=== PATIENT | female | born 1930 | race Caucasian/White ===

== ENCOUNTER 2018-02-28 03:38 | Emergency (ER) | payer MEDICARE ==
--- NOTE | 2018-02-28 03:52 | EDM.PDOC ---
ED HPI GENERAL MEDICAL PROBLEM - General Chief Complaint: Head Injury Stated Complaint: AMBULANCE Time Seen by Provider: 02/28/18 03:47 Source of Information: Reports: Patient History Limitations: Reports: No Limitations - History of Present Illness INITIAL COMMENTS - FREE TEXT/NARRATIVE: HISTORY AND PHYSICAL: History of present illness: 80-year-old female presenting emergency to department by EMS after a fall with head trauma at 3 am this morning. As per patient, at approximately 3 AM this morning she was turning around by her bed and lost her balance falling backwards and striking the back of her head. She states that she did not lose consciousness. She denies any chest pain or shortness of breath prior to or after the event. She does admit to having some problems with her balance. At this time she is having no pain at all. She denies and taking any blood thinners. Patient does have an inhaler for asthma. Otherwise patient is doing well. She denies any recent illness. She denies any chest pain, palpitations, shortness of breath, single episodes, focal neurologic deficits, abdominal pain, dysuria, or leg pain. On exam patient is alert and oriented 3 There is a large hematoma on the occiput with a smaller hematoma and abrasion approximately an inch and a half below larger hematoma on back of head. Review of systems: As per history of present illness and below otherwise all systems reviewed and negative. Past medical history: As per history of present illness and as reviewed below otherwise noncontributory. Surgical history: As per history of present illness and as reviewed below otherwise noncontributory. Social history: No reported history of drug or alcohol abuse. Family history: As per history of present illness and as reviewed below otherwise noncontributory. Physical exam: HEENT: See above H&P, normocephalic, pupils reactive, negative for conjunctival pallor or scleral icterus, mucous membranes moist, throat clear, neck supple, nontender, trachea midline. Lungs: Clear to auscultation, breath sounds equal bilaterally, chest nontender. Heart: S1S2, regular, negative for clicks, rubs, or JVD. Abdomen: Soft, nondistended, nontender. Negative for masses or hepatosplenomegaly. Negative for costovertebral tenderness. Pelvis: Stable nontender. Genitourinary: Deferred. Rectal: Deferred. Extremities: Atraumatic, negative for cords or calf pain. Neurovascular unremarkable. Neuro: Awake, alert, oriented. Cranial nerves II through XII unremarkable. Cerebellum unremarkable. Motor and sensory unremarkable throughout. Exam nonfocal. Diagnostics: CBC, CMP, UA/UC, CT head and neck Therapeutics: Bacitracin Bactrim DS by mouth twice a day 5 days Impression: Fall Contusion occiput head Laceration occiput head Plan: CBC, CMP, CT head and neck were unremarkable. Bacitracin was placed on abrasion in patient was instructed to use ice as well as ibuprofen and Tylenol for pain and inflammation. Urinalysis was positive for acute cystitis. Patient was given a prescription for Bactrim DS by mouth twice a day 5 days. She should follow- up with her primary care provider and return to emergency department if any new or worsening symptoms. Definitive disposition and diagnosis as appropriate pending reevaluation and review of above. no pain Pain Score (Numeric/FACES): 0 - Related Data Allergies Allergy/AdvReac Type Severity Reaction Status Date / Time No Known Allergies Allergy Verified 02/28/18 03:44 Home Meds: Home Meds Acetaminophen [Tylenol] 650 mg PO ASDIRECTED 02/28/18 [History] Albuterol [Ventolin HFA] 0 puff .XX 02/28/18 [History] Bisacodyl 10 mg RC ASDIRECTED 02/28/18 [History] Cholecalciferol (Vitamin D3) [Vitamin D3] 1,000 units PO DAILY 02/28/18 [History ] Docusate Sodium [Colace] 100 mg PO Q8HR 02/28/18 [History] Magnesium Hydroxide [Milk of Magnesia] 400 mg PO ASDIRECTED 02/28/18 [History] Polyethylene Glycol 3350 [MiraLAX] 17 g PO ASDIRECTED 02/28/18 [History] ED ROS GENERAL - Review of Systems Review Of Systems: ROS reveals no pertinent complaints other than HPI. ED EXAM, HEAD INJURY - Physical Exam Exam: See Below Course - Vital Signs Last Recorded V/S: Last Vital Signs Temp 97.6 F 02/28/18 03:44 Pulse 82 02/28/18 05:07 Resp 20 02/28/18 05:07 BP 163/75 H 02/28/18 05:07 Pulse Ox 96 02/28/18 05:07 - Orders/Labs/Meds Orders: Active Orders 24 hr Category Date Time Status EKG Documentation Completion [RC] STAT Care 02/28/18 05:09 Active Cervical Spine wo Cont [CT] Stat Exams 02/28/18 03:52 Taken Head wo Cont [CT] Stat Exams 02/28/18 03:52 Taken CULTURE URINE [RM] Stat Lab 02/28/18 05:25 Received Labs: Laboratory Tests 02/28/18 02/28/18 02/28/18 Range/Units 04:06 04:06 05:25 WBC 4.73 (4.0-11.0) K/uL RBC 4.32 (4.30-5.90) M/uL Hgb 13.8 (12.0-16.0) g/dL Hct 40.4 (36.0-46.0) % MCV 93.5 (80.0-98.0) fL MCH 31.9 (27.0-32.0) pg MCHC 34.2 (31.0-37.0) g/dL RDW Std Deviation 45.7 (28.0-62.0) fl RDW Coeff of Inés 13 (11.0-15.0) % Plt Count 215 (150-400) K/uL MPV 9.20 (7.40-12.00) fL Neut % (Auto) 49.3 (48.0-80.0) % Lymph % (Auto) 33.8 (16.0-40.0) % Davison % (Auto) 11.8 (0.0-15.0) % Eos % (Auto) 3.6 (0.0-7.0) % Baso % (Auto) 1.5 (0.0-1.5) % Neut # (Auto) 2.3 (1.4-5.7) K/uL Lymph # (Auto) 1.6 (0.6-2.4) K/uL Davison # (Auto) 0.6 (0.0-0.8) K/uL Eos # (Auto) 0.2 (0.0-0.7) K/uL Baso # (Auto) 0.1 (0.0-0.1) K/uL Nucleated RBC % 0.0 /100WBC Nucleated RBCs # 0 K/uL Sodium 133 L (136-145) mmol/L Potassium 4.4 (3.5-5.1) mmol/L Chloride 100 (98-107) mmol/L Carbon Dioxide 28.8 (21.0-32.0) mmol/L BUN 12 (7.0-18.0) mg/dL Creatinine 0.7 (0.6-1.0) mg/dL Est Cr Clr Drug Dosing 39.90 mL/min Estimated GFR (MDRD) > 60.0 ml/min Glucose 104 (74-106) mg/dL Calcium 9.1 (8.5-10.1) mg/dL Total Bilirubin 0.4 (0.2-1.0) mg/dL AST 13 L (15-37) IU/L ALT 13 L (14-63) IU/L Alkaline Phosphatase 132 H (46-116) U/L Total Protein 6.9 (6.4-8.2) g/dL Albumin 3.6 (3.4-5.0) g/dL Globulin 3.3 (2.0-3.5) g/dL Albumin/Globulin Ratio 1.1 L (1.3-2.8) Urine Color YELLOW Urine Appearance CLEAR Urine pH 7.0 (5.0-8.0) Ur Specific [place] 1.010 (1.001-1.035) Urine Protein NEGATIVE (NEGATIVE) mg/dL Urine Glucose (UA) NEGATIVE (NEGATIVE) mg/dL Urine Ketones NEGATIVE (NEGATIVE) mg/dL Urine Occult Blood NEGATIVE (NEGATIVE) Urine Nitrite NEGATIVE (NEGATIVE) Urine Bilirubin NEGATIVE (NEGATIVE) Urine Urobilinogen 0.2 (<2.0) EU/dL Ur Leukocyte Esterase LARGE (NEGATIVE) Urine RBC 0-2 (0-2/HPF) Urine WBC 4-12 (0-5/HPF) Ur Epithelial Cells OCCASIONAL (NONE-FEW) Urine Bacteria 1+ H (NEGATIVE) Departure - Departure Time of Disposition: 05:45 Disposition: DC/Tfer to [facility] Condition: Good Clinical Impression: Fall Qualifiers: Encounter type: initial encounter Qualified Code(s): W19.XXXA - Unspecified fall, initial encounter Contusion Qualifiers: Encounter type: initial encounter Contusion area: head Contusion of head detail : scalp Qualified Code(s): S00.03XA - Contusion of scalp, initial encounter - Discharge Information Forms: ED Department Discharge - My Orders Last 24 Hours: My Active Orders 02/28/18 03:52 Cervical Spine wo Cont [CT] Stat Head wo Cont [CT] Stat 02/28/18 05:09 EKG Documentation Completion [RC] STAT 02/28/18 05:25 CULTURE URINE [RM] Stat - Assessment/Plan Last 24 Hours: My Active Orders 02/28/18 03:52 Cervical Spine wo Cont [CT] Stat Head wo Cont [CT] Stat 02/28/18 05:09 EKG Documentation Completion [RC] STAT 02/28/18 05:25 CULTURE URINE [RM] Stat
[2018-02-28 04:33] LABS: CHLORIDE,CL 100 mmol/L (98-107); SODIUM,NA 133 mmol/L (136-145)
--- NOTE | 2018-03-02 11:54 | CT ---
EXAM DATE: 02/28/18 PATIENT'S AGE: 88 Patient: ANNIKA DICKINSON Facility: [place], [place] Site . Site : 1930 Study: CT Spine Cervical [id number]/29/2018 5:07:02 AM Ordering Physician: Kane Sargent Final Report: INDICATION: Fell, neck pain TECHNIQUE: CT cervical spine without i.v. contrast. Coronal and sagittal reformats were obtained. CONTRAST: None COMPARISON: None FINDINGS: Alignment: Grade 1 anterolisthesis C3-4 is noted. Mild kyphosis of the mid cervical spine seen. Bone: No acute fractures or aggressive bone lesions are identified. Disc: Moderate degenerative disc narrowing is present at C3-4, C5-6 and C6-7. Scattered facet osteoarthritis is noted bilaterally. Soft tissue: The prevertebral soft tissues are unremarkable in appearance. The visualized lung apices and mediastinum are unremarkable. Miscellaneous: Subcutaneous emphysema seen along the posterior occiput. IMPRESSION: 1. No acute osseous injuries are identified. Dictated by Joel Moore MD @ 02/28/2018 5:17:11 AM Please note that all CT scans at this facility use dose modulation, iterative reconstruction, and/or weight-based dosing when appropriate to reduce radiation dose to as low as reasonably achievable. Dictated by: Joel Moore MD @ 02/28/2018 05:17:14 (Electronic Signature) Report Signed by Proxy. [facility]
--- NOTE | 2018-03-02 11:55 | CT ---
EXAM DATE: 02/28/18 PATIENT'S AGE: 88 Patient: ANNIKA DICKINSON Facility: [place], [place] Site . Site : 1930 Study: CT Head [id number]/29/2018 5:09:16 AM Ordering Physician: Kane Sargent Final Report: INDICATION: Fell and hit the back of her head around 0300HRS TECHNIQUE: CT Head without i.v. contrast. COMPARISON: None FINDINGS: CSF spaces: Within normal limits for age. Brain parenchyma: Mild diffuse cortical atrophy is noted. The brain parenchyma is normal in appearance with preservation of the fragoso-white matter junction. No sign of mass, hemorrhage, or midline shift. Skull base and calvarium: The visualized paranasal sinuses are well aerated. The mastoid air cells are clear. The visualized orbits are grossly unremarkable. No skull fractures are seen. Subcutaneous hematoma and emphysema noted over the occipital region. IMPRESSION: 1. No CT evidence acute infarcts, hemorrhage, or mass effect seen. Please note that all CT scans at this facility use dose modulation, iterative reconstruction, and/or weight-based dosing when appropriate to reduce radiation dose to as low as reasonably achievable. Dictated by: Joel Moore MD @ 02/28/2018 05:20:01 (Electronic Signature) Report Signed by Proxy. [facility]
== END 2018-02-28 05:59 | disposition home or self-care (01) ==
LOC: MW.ED 03:38
DX: S01.01XA Laceration without foreign body of scalp, initial encounter (principal); N30.00 Acute cystitis without hematuria; Z79.899 Other long term (current) drug therapy; W19.XXXA Unspecified fall, initial encounter
CPT/HCPCS: 36415; 70450; 70450-26; 72125; 72125-26; 80053; 81001; 85025; 87086; 87088; 87186; 99283; 99284-25

== ENCOUNTER 2019-01-31 17:22 | Emergency (ER) | payer MEDICARE ==
--- NOTE | 2019-01-31 17:51 | EDM.PDOC ---
ED HPI GENERAL MEDICAL PROBLEM - General Chief Complaint: Upper Extremity Injury/Pain Stated Complaint: BETHAL PT Time Seen by Provider: 01/31/19 17:51 Source of Information: Reports: Patient History Limitations: Reports: No Limitations - History of Present Illness INITIAL COMMENTS - FREE TEXT/NARRATIVE: HISTORY AND PHYSICAL: History of present illness: Patient is an 88-year-old female presents to the ED from [place] for left wrist injury. She states she was getting up to flush the toilet when she tripped and fell trying to catch herself with her left hand. She denies head injury. She denies other injury and has no other complaints. She denies chest pain, palpitation, SOB, dizziness, nausea, vomiting ,abdominal pain. Review of systems: As per history of present illness and below otherwise all systems reviewed and negative. Past medical history: As per history of present illness and as reviewed below otherwise noncontributory. Surgical history: As per history of present illness and as reviewed below otherwise noncontributory. Social history: No reported history of drug or alcohol abuse. Family history: As per history of present illness and as reviewed below otherwise noncontributory. Physical exam: General: Patient sitting comfortably in no acute distress and nontoxic appearing HEENT: Atraumatic, normocephalic, pupils reactive, negative for conjunctival pallor or scleral icterus, mucous membranes moist, throat clear, neck supple, nontender, trachea midline. No meningeal signs. Lungs: Clear to auscultation, breath sounds equal bilaterally, chest nontender. Heart: S1S2, regular, negative for clicks, rubs, or overt murmur. Abdomen: Soft, nondistended, nontender. Negative for masses or hepatosplenomegaly. Negative for costovertebral tenderness. No rigidity, rebound , guarding. Pelvis: Stable nontender. Genitourinary: Deferred. Rectal: Deferred. Extremities: Atraumatic, negative for cords or calf pain. Neurovascular unremarkable. Neuro: Awake, alert, oriented. Cranial nerves II through XII unremarkable. Cerebellum unremarkable. Motor and sensory unremarkable throughout. Exam nonfocal. Notes: Discussed with Dr. Marcial, he advised patient be put in a splint and follow up with him outpatient. Diagnostics: x-ray left wrist Therapeutics: splint Prescriptions: Impression: distal radius fracture Plan: Alternate tylenol and motrin as needed Follow up with orthopedics, please call the number provided to schedule an appointment Return to ED as needed as discussed Definitive disposition and diagnosis as appropriate pending reevaluation and review of above. left wrist Pain Score (Numeric/FACES): 10 - Related Data Allergies Allergy/AdvReac Type Severity Reaction Status Date / Time No Known Allergies Allergy Verified 01/31/19 17:29 Home Meds: Home Meds Acetaminophen [Tylenol] 650 mg PO Q4HR PRN 02/28/18 [History] Albuterol [Ventolin HFA] 2 puff INH TID PRN 02/28/18 [History] Bisacodyl 10 mg RC ASDIRECTED PRN 02/28/18 [History] Cholecalciferol (Vitamin D3) [Vitamin D3] 1,000 units PO DAILY 02/28/18 [History ] Docusate Sodium [Colace] 100 mg PO Q8HR PRN 02/28/18 [History] Magnesium Hydroxide [Milk of Magnesia] 30 ml PO DAILY PRN 02/28/18 [History] Acetaminophen [Tylenol Extra Strength] 500 mg PO QID PRN 01/31/19 [History] Trolamine Salicylate 0 gm TOP Q6HR PRN 01/31/19 [History] Past Medical History HEENT History: Reports: Cataract, Other (See Below) Other HEENT History: dysphagia Cardiovascular History: Reports: None Respiratory History: Reports: Asthma, Other (See Below) Other Respiratory History: wheezing, cough Gastrointestinal History: Reports: Chronic Constipation Genitourinary History: Reports: None Musculoskeletal History: Reports: Back Pain, Chronic, Other (See Below) Other Musculoskeletal History: chronic pain syndrome, abnormalities of gait and mobility, pain thoracic spine, difficulty walking, unspecified lack of coordinationwedge compression fx T7-T8, T11-T12, first lumbar vertebra, kyphosis , disorder of bone density and structure, scoliosis Psychiatric History: Reports: None Endocrine/Metabolic History: Reports: None Hematologic History: Reports: None Oncologic (Cancer) History: Reports: Breast Other Oncologic History: malignant neoplasm of right breast Dermatologic History: Reports: None - Infectious Disease History Infectious Disease History: Reports: Chicken Pox - Past Surgical History HEENT Surgical History: Reports: None Respiratory Surgical History: Reports: None GI Surgical History: Reports: None Female Surgical History: Reports: Mastectomy Other Female Surgeries/Procedures: right side mastectomy Musculoskeletal Surgical History: Reports: None Oncologic Surgical History: Reports: None Social & Family History - Family History Family Medical History: Noncontributory Review of Systems - Review of Systems Review Of Systems: ROS reveals no pertinent complaints other than HPI. ED EXAM, GENERAL - Physical Exam Exam: See Below (see dictation) Course - Vital Signs Last Recorded V/S: Last Vital Signs Temp 97.1 F 01/31/19 17:25 Pulse 78 01/31/19 18:13 Resp 18 01/31/19 18:13 BP 180/89 H 01/31/19 18:13 Pulse Ox 98 01/31/19 18:13 Departure - Departure Time of Disposition: 19:07 Disposition: Home, Self-Care 01 Condition: Good Clinical Impression: Distal radius fracture - Discharge Information Referrals: PCP,Giorgiobpamela [Primary Care Provider] - Forms: ED Department Discharge Additional Instructions: The following information is given to patients seen in the emergency department who are being discharged to home. This information is to outline your options for follow-up care. We provide all patients seen in our emergency department with a follow-up referral. The need for follow-up, as well as the timing and circumstances, are variable depending upon the specifics of your emergency department visit. If you don't have a primary care physician on staff, we will provide you with a referral. We always advise you to contact your personal physician following an emergency department visit to inform them of the circumstance of the visit and for follow-up with them and/or the need for any referrals to a consulting specialist. The emergency department will also refer you to a specialist when appropriate. This referral assures that you have the opportunity for follow-up care with a specialist. All of these measure are taken in an effort to provide you with optimal care, which includes your follow-up. Under all circumstances we always encourage you to contact your private physician who remains a resource for coordinating your care. When calling for follow-up care, please make the office aware that this follow-up is from your recent emergency room visit. If for any reason you are refused follow-up, please contact the [facility] Emergency Department at and asked to speak to the emergency department charge nurse. [facility] [address], [address] [place] [address] Alternate tylenol and motrin as needed Follow up with orthopedics, please call the number provided to schedule an appointment Return to ED as needed as discussed
--- NOTE | 2019-01-31 18:39 | CR ---
INDICATION: Fall, left wrist pain TECHNIQUE: Wrist radiograph 3 views left COMPARISON: None FINDINGS: Bone: There is a comminuted fracture present in the distal radius with the articular surface angulated dorsally by 24 degrees. Focal cortical angulation along the distal pole of the scaphoid is suggestive of a nondisplaced fracture. Severe diffuse osteopenia is noted. Joint: The radiocarpal, carpal, and carpometacarpal joints are unremarkable in appearance. Soft tissue: Unremarkable. No radiopaque foreign bodies are seen. IMPRESSIONS: 1. There is a comminuted fracture present in the distal radius with the articular surface angulated dorsally by 24 degrees. 2. Focal cortical angulation along the distal pole of the scaphoid is suggestive of a nondisplaced fracture. Correlation with physical exam for tenderness in the anatomic snuffbox is recommended. Dictated by Joel Moore MD @ 01/31/2019 6:37:48 PM Dictated by: Joel Moore MD @ 01/31/2019 18:37:50 (Electronically Signed)
== END 2019-01-31 20:07 | disposition home or self-care (01) ==
LOC: MW.ED 17:22
DX: S52.502A Unspecified fracture of the lower end of left radius, initial encounter for closed fracture (principal); Z79.899 Other long term (current) drug therapy; W01.0XXA Fall on same level from slipping, tripping and stumbling without subsequent striking against object, initial encounter
CPT/HCPCS: 73110-26-LT; 73110-LT; 99283-25